=== PATIENT | female | born 1945 | race Caucasian/White ===

== ENCOUNTER 2019-03-27 05:59 | Observation (INO) | payer MEDICARE ==
[~2019-03-27] VITALS: Ht 149.9 cm; Wt 61.4 kg
[2019-03-27 06:34] LABS: BASOPHILS # (AUTO) 0.1 X10'3 (0-0.2); EOSINOPHILS # (AUTO) 0.2 X10'3 (0-0.9); NEUTROPHILS # (AUTO) 3.4 X10'3 (1.8-7.7); RED CELL DISTRIBUTION WIDTH 14.2 % (11.5-14.5)
[2019-03-27 06:38] LABS: BASOPHILS % (AUTO) 1.8 % (0-1); EOSINOPHILS % (AUTO) 2.6 % (0-6); HEMATOCRIT 42.8 % (35.0-45.0); HEMOGLOBIN 14.5 g/dl (12.0-16.0); LYMPHOCYTES % (AUTO) 33.5 % (21-51); MEAN CORPUSCULAR HEMOGLOBIN 29.3 PG (27.0-31.0); MEAN CORPUSCULAR HGB CONC 33.9 g/dL (33.0-36.5); MEAN CORPUSCULAR VOLUME 86.5 FL (78-98); MEAN PLATELET VOLUME 9.2 FL (7.4-10.4); MONOCYTES # (AUTO) 0.3 X10'3 (0-0.9); MONOCYTES % (AUTO) 5.2 % (2-12); NEUTROPHILS % (AUTO) 56.9 % (42-75); PLATELET COUNT 209 X10'3 (140-440); RED BLOOD COUNT 4.94 X10'6 (4.20-5.60)
[2019-03-27 06:54] LABS: ALANINE AMINOTRANSFERASE 36 U/L (12-78); ALKALINE PHOSPHATASE 93 IU/L (46-116); ANION GAP 11 (8-16); ASPARTATE AMINO TRANSFERASE 40 U/L (10-37); BILIRUBIN,TOTAL 0.5 MG/DL (0.1-1.0); BLOOD UREA NITROGEN 23 MG/DL (7-18); CALCIUM 9.6 MG/DL (8.5-10.1); CHLORIDE 106 MMOL/L (99-107); GLUCOSE 113 MG/DL (70-104); POTASSIUM 3.8 MMOL/L (3.5-5.1); SODIUM 144 MMOL/L (135-145); TOTAL CARBON DIOXIDE 27.4 MMOL/L (24-32); TOTAL PROTEIN 7.7 G/DL (6.4-8.2)
[2019-03-27 07:05] LABS: BUN/CREATININE RATIO 30.7 (6.6-38.0); CREATININE 0.75 MG/DL (0.40-0.90); eGFR 76 ML/MIN
[2019-03-27 07:07] LABS: ALBUMIN 4.9 G/DL (3.4-5.0); ALBUMIN/GLOBULIN RATIO 1.8 (1.1-1.5)
[2019-03-27] MEDS ORDERED: aspirin 81mg tab.chew PO ONE (07:10)
[2019-03-27] MEDS ORDERED: nitroGLYCERIN 0.4mg SUBLingual tab SL PRN ×2 (07:10→15:55)
[2019-03-27] MEDS ORDERED: normal saline 1000ml 1,000 ML IV SCH (07:36)
[2019-03-27] MEDS ORDERED: ondansetron/PF 4mg/2ml inj IV PRN (07:40)
[2019-03-27] MEDS ORDERED: potassium CL 10mEq/100ml bag 100 ML IV PRN ×2 (07:40)
[2019-03-27] MEDS ORDERED: magnesium 4gm in 100ml NS 100 ML IV PRN (07:40)
[2019-03-27] MEDS ORDERED: magnesium 2GM in 50ml NS 50 ML IV PRN (07:40)
[2019-03-27] MEDS ORDERED: magnesium Cl slow-release 64mg tablet PO PRN (07:40)
[2019-03-27] MEDS ORDERED: acetaminophen 325mg tablet PO PRN (07:40)
[2019-03-27] MEDS ORDERED: potassium Cl 20 mEq SR tablet PO PRN ×2 (07:40)
[2019-03-27] MEDS: K and/or MAG REPLACEMENT MC SCH ×2 (08:00→20:00)
[2019-03-27] MEDS: heparin, porcine 5000 units/ml vial SQ SCH ×2 (08:34→20:25)
[2019-03-27] MEDS ORDERED: ATOR10TA70 PO (09:20)
[2019-03-27] MEDS ORDERED: UBID100C16 PO (12:29)
[2019-03-27] MEDS ORDERED: TURM500C4 PO (12:29)
[2019-03-27] MEDS ORDERED: OMEG1CAP2 PO (12:29)
[2019-03-27] MEDS ORDERED: CALC1TAB PO (12:29)
[2019-03-27] MEDS ORDERED: CHOL10006 PO (12:29)
[2019-03-27] MEDS ORDERED: ASPI-611 PO (12:29)
[2019-03-27] MEDS ORDERED: MULT-955 PO (12:29)
[2019-03-27] MEDS ORDERED: CINN500C15 PO (12:29)
[2019-03-27 14:30] VITALS: BP 106/45
--- NOTE | 2019-03-27 14:35 | NUR ---
PATIENT C/O " SORENESS TO TOUCH AT UPPER ANTERIOR CHEST." RATES " SORENESS 3 ON PAIN SCALE OF ONE TO 10.' hob up call light in reach.Reposition with pillows. Addendum: 03/27/19 at 1918 by Huma Newman RN Amended: Links added.
[2019-03-27 15:00] VITALS: BP 114/53
[2019-03-27] MEDS ORDERED: aminophylline 250mg/10ml inj. IV PRN (15:55)
[2019-03-27] MEDS ORDERED: regadenoson 0.4mg/5ml syringe IV ONE (15:55)
[2019-03-27] MEDS ORDERED: metoprolol tartrate 1mg/ml inj IV PRN (15:55)
[2019-03-27 18:00] VITALS: BP 123/71
--- NOTE | 2019-03-27 18:20 | NUR ---
Patient in room MED 315. I have received report from ROSALBA Anne and had the opportunity to ask questions and assume patient care.
[2019-03-27 22:00] VITALS: BP 107/41
[2019-03-28] VITALS (11 sets, daily range): BP systolic 109–131; BP diastolic 51–60
[2019-03-28 05:23] LABS: BASOPHILS # (AUTO) 0.1 X10'3 (0-0.2); BASOPHILS % (AUTO) 1.8 % (0-1); EOSINOPHILS # (AUTO) 0.2 X10'3 (0-0.9); HEMATOCRIT 40.7 % (35.0-45.0); HEMOGLOBIN 13.8 g/dl (12.0-16.0); LYMPHOCYTES % (AUTO) 34.7 % (21-51); MEAN CORPUSCULAR HEMOGLOBIN 29.2 PG (27.0-31.0); MEAN CORPUSCULAR HGB CONC 33.8 g/dL (33.0-36.5); MEAN CORPUSCULAR VOLUME 86.5 FL (78-98); MEAN PLATELET VOLUME 9.4 FL (7.4-10.4); MONOCYTES # (AUTO) 0.4 X10'3 (0-0.9); MONOCYTES % (AUTO) 7.3 % (2-12); NEUTROPHILS % (AUTO) 53.2 % (42-75); PLATELET COUNT 198 X10'3 (140-440); RED BLOOD COUNT 4.71 X10'6 (4.20-5.60); RED CELL DISTRIBUTION WIDTH 13.9 % (11.5-14.5); WHITE BLOOD COUNT 5.7 X10'3 (4.5-11.0)
[2019-03-28 05:59] LABS: ALBUMIN 3.5 G/DL (3.4-5.0); ANION GAP 10 (8-16); BLOOD UREA NITROGEN 16 MG/DL (7-18); BUN/CREATININE RATIO 21.3 (6.6-38.0); CALCIUM 8.9 MG/DL (8.5-10.1); CHLORIDE 107 MMOL/L (99-107); CHOL/HDL RATIO 3.3 (0.00-4.99); CHOLESTEROL 146 MG/DL (0-200); CREATININE 0.75 MG/DL (0.40-0.90); GLUCOSE 95 MG/DL (70-104); HDL CHOLESTEROL 44 MG/DL (35-60); LDL CHOLESTEROL 84 MG/DL (50-100); MAGNESIUM 2.1 MG/DL (1.5-2.4); POTASSIUM 4.3 MMOL/L (3.5-5.1); SODIUM 143 MMOL/L (135-145); TOTAL CARBON DIOXIDE 26.4 MMOL/L (24-32); TRIGLYCERIDES 125 MG/DL (20-135); eGFR 76 ML/MIN
--- NOTE | 2019-03-28 06:15 | NUR ---
Patient in room MED 315. I have received report from ROSALBA Nettles and had the opportunity to ask questions and assume patient care.
--- NOTE | 2019-03-28 06:18 | NUR ---
Problems reprioritized. Patient report given, questions answered & plan of care reviewed with ROSALBA Jacob.
[2019-03-28] MEDS: K and/or MAG REPLACEMENT MC SCH (08:39)
[2019-03-28] MEDS: heparin, porcine 5000 units/ml vial SQ SCH (08:42)
--- NOTE | 2019-03-28 10:45 | NUR ---
Patient just arrived back from the stress test. Patient was in wheel chair and transferred to the bed under her own strength. Patient is alert and oriented and in stable condition. Vitals within normal limits. Will await the results of stress test.
--- NOTE | 2019-03-28 12:26 | NUR ---
PAGER ID: [phone] MESSAGE: Dr. Rojas, Patient Beatriz Corona in rm 315 on [facility], FYI Lexiscan is negative. Will patient discharge? ROSALBA Jacob [id number]
--- NOTE | 2019-03-31 08:47 | NUR ---
Case Management DC follow-up: spoke w/pt via telephone. Pt states she is doing okay, still has a little heaviness in the chest. Denies SOB, cp, general pain, N/V, dizziness at this time. Did not note SOB during conversation. Pt states she has a cold at this time. pt kept appt w/Dr Alcantar office yesterday 03/30/2019, EKG done. Dr Alcantar office will follow up w/pt regarding results and are also waiting for records from [facility]. Pt will also make another follow up w/PCP. All pt needs were met and questions answered at [place] and has no more questions at this time. pt continues taking medications as ordered and understands why.
== END 2019-03-28 14:00 | disposition home or self-care (01) ==
LOC: ER 06:00 → ED HOLD 07:36 → MED 3N 14:00
PROVIDERS: ADMIT Internal Medicine; ATTEND Internal Medicine
DX: R07.89 Other chest pain (principal); I44.7 Left bundle-branch block, unspecified; I24.9 Acute ischemic heart disease, unspecified; E78.00 Pure hypercholesterolemia, unspecified; E78.5 Hyperlipidemia, unspecified; Z79.899 Other long term (current) drug therapy; Z79.82 Long term (current) use of aspirin
CPT/HCPCS: 36415; 71045; 78452; 80048; 80053; 80061; 83735; 83880; 84484; 85025; 87081; 93005; 93017; 93306; 96372; 99284; A9500; G0378; J1644; J2785

== ENCOUNTER 2019-08-24 05:00 | Day surgery (SDC) | payer MEDICARE ==
[2019-08-19 09:51] LABS: EOSINOPHILS # (AUTO) 0.1 X10'3 (0-0.9); HEMOGLOBIN 14.2 g/dl (12.0-16.0); MONOCYTES # (AUTO) 0.3 X10'3 (0-0.9)
[2019-08-19 09:53] LABS: BASOPHILS # (AUTO) 0.1 X10'3 (0-0.2); EOSINOPHILS % (AUTO) 2.3 % (0-6); LYMPHOCYTES # (AUTO) 1.9 X10'3 (1.1-4.8); LYMPHOCYTES % (AUTO) 34.1 % (21-51); MEAN CORPUSCULAR HGB CONC 32.9 g/dL (33.0-36.5); MEAN CORPUSCULAR VOLUME 88.2 FL (78-98); MEAN PLATELET VOLUME 9.2 FL (7.4-10.4); MONOCYTES % (AUTO) 5.8 % (2-12); NEUTROPHILS # (AUTO) 3.1 X10'3 (1.8-7.7); NEUTROPHILS % (AUTO) 55.8 % (42-75); PLATELET COUNT 199 X10'3 (140-440); RED BLOOD COUNT 4.88 X10'6 (4.20-5.60); RED CELL DISTRIBUTION WIDTH 13.6 % (11.5-14.5); WHITE BLOOD COUNT 5.6 X10'3 (4.5-11.0)
[2019-08-19 09:55] LABS: ANION GAP 8 (8-16); BLOOD UREA NITROGEN 17 MG/DL (7-18); BUN/CREATININE RATIO 22.7 (6.6-38.0); CALCIUM 9.1 MG/DL (8.5-10.1); CHLORIDE 107 MMOL/L (99-107); CREATININE 0.75 MG/DL (0.40-0.90); GLUCOSE 101 MG/DL (70-104); POTASSIUM 4.1 MMOL/L (3.5-5.1); SODIUM 142 MMOL/L (135-145); TOTAL CARBON DIOXIDE 27.2 MMOL/L (24-32); eGFR 76 ML/MIN
[2019-08-19 09:58] LABS: PARTIAL THROMBOPLASTIN TIME 29 SECONDS (22-32)
[~2019-08-24] VITALS: Ht 151.1 cm; Wt 63.5 kg
[2019-08-24] VITALS (9 sets, daily range): BP systolic 101–126; BP diastolic 45–60
[~2019-08-24 05:00] MED LIST: ASPI-611 PO; ATOR10TA70 PO; CALC1TAB PO; CHOL10006 PO; CINN500C15 PO; MULT-955 PO; OMEG1CAP2 PO; TURM500C4 PO; UBID100C16 PO
[2019-08-24] MEDS ORDERED: LORazepam 0.5 MG tablet PO PRN (05:20)
[2019-08-24] MEDS ORDERED: diphenhydrAMINE 25mg capsule PO PRN (05:20)
[2019-08-24] MEDS ORDERED: normal saline 1,000 ML IV SCH (05:20)
[2019-08-24] MEDS ORDERED: fentaNYL/PF 50MCG/1 ML 2ML syringe ONE (06:04)
[2019-08-24] MEDS ORDERED: iohexol 350MG/ML 100ml bottle IV ONE (06:04)
[2019-08-24] MEDS ORDERED: LIDOcaine 1% (10mg/ml)w/preservative injection 20ml MDV ONE (06:04)
[2019-08-24] MEDS ORDERED: midazolam 2 mg/2 ml injection ONE (06:04)
[2019-08-24] MEDS ORDERED: HYDROcodone/acetaminophen 5mg/325mg tablet PO PRN (07:20)
[2019-08-24] MEDS ORDERED: ondansetron/PF 4mg/2ml inj IV PRN (07:20)
[2019-08-24] MEDS ORDERED: OXAZEpam 15mg capsule PO PRN (07:20)
[2019-08-24] MEDS ORDERED: HYDROcodone/acetaminophen 10/325mg tab PO PRN (07:20)
[2019-08-24] MEDS ORDERED: proCHLORperazine 10 MG/2 ml inj IV PRN (07:20)
== END 2019-08-24 10:40 | disposition home or self-care (01) ==
LOC: SSTAY O 05:00
PROVIDERS: ATTEND Internal Medicine Interventional Cardiology
DX: R07.2 Precordial pain (principal); I25.10 Atherosclerotic heart disease of native coronary artery without angina pectoris; E78.5 Hyperlipidemia, unspecified; Z79.82 Long term (current) use of aspirin; Z79.899 Other long term (current) drug therapy; Z79.01 Long term (current) use of anticoagulants
CPT/HCPCS: 36415; 80048; 85025; 85610; 85730; 93458; 99152; C1769; J1644; J2001; J2250; J3010; J7030; Q0163; Q9967; 93005; A4620; A6258